=== PATIENT | male | born 1980 | race African-American/Black ===

== ENCOUNTER 2020-01-09 01:18 | Emergency (ER) | payer SELFPAY ==
[~2020-01-09] VITALS: Ht 180.3 cm; Wt 104.3 kg
[2020-01-09 01:39] LABS: BASOPHILS # (AUTO) 0.1 (0.0-0.1); BASOPHILS % 0.5 % (0.0-1.0); EOSINOPHILS # (AUTO) 0.3 (0.0-0.4); EOSINOPHILS % 2.2 % (0.0-6.0); HEMATOCRIT 44.2 % (38.2-49.6); HEMOGLOBIN 14.5 g/dL (14.0-18.0); LYMPHOCYTES # (AUTO) 5.3 (1.0-3.2); LYMPHOCYTES % 44.1 % (18.0-39.1); MEAN CORPUSCULAR HEMOGLOBIN 32.4 pg (28-32); MEAN CORPUSCULAR HGB CONC 32.8 g/dL (31-35); MEAN CORPUSCULAR VOLUME 98.7 fL (81-99); MONOCYTES # (AUTO) 0.8 (0.2-0.8); MONOCYTES % 6.3 % (4.4-11.3); NEUTROPHILS # (AUTO) 5.6 (2.1-6.9); NEUTROPHILS % 46.6 % (38.7-80.0); PLATELET COUNT 253 x10e3/uL (140-360); RED BLOOD COUNT 4.48 x10e6/uL (4.3-5.7); RED CELL DISTRIBUTION WIDTH 12.2 % (11.7-14.4)
[2020-01-09 02:02] LABS: INR 0.99; PROTHROMBIN TIME 13.7 seconds (11.9-14.5)
[2020-01-09 02:06] LABS: ALANINE AMINOTRANSFERASE 60 IU/L (0-55); ALBUMIN 3.7 g/dL (3.5-5.0); ALBUMIN/GLOBULIN RATIO 1.1 (0.8-2.0); ALKALINE PHOSPHATASE 153 IU/L (40-150); ANION GAP 14.6 mmol/L (8-16); BLOOD UREA NITROGEN 10 mg/dL (7-26); BUN/CREATININE RATIO 11 (6-25); CALCIUM 9.6 mg/dL (8.4-10.2); CARBON DIOXIDE 22 mmol/L (22-29); CHLORIDE 108 mmol/L (98-107); CREATININE, SERUM 0.95 mg/dL (0.72-1.25); EST GLOMERULAR FILTRATION RATE > 60 ML/MIN (60-); GLUCOSE 95 mg/dL (74-118); POTASSIUM 4.6 mmol/L (3.5-5.1); SODIUM 140 mmol/L (136-145)
--- NOTE | 2020-01-09 02:45 | Diagnostic Imaging Report ---
EXAMINATION: Head CT without contrast. HISTORY:Left jaw pain. COMPARISON:None. TECHNIQUE: Multidetector axial images were obtained from the foramen magnum to the vertex without contrast. The images were reconstructed using brain and bone algorithms. Thin section brain images were reformatted into coronal and sagittal planes. Dose modulation, iterative reconstruction, and/or weight based adjustment of the mA/kV was utilized to reduce the radiation dose to as low as reasonably achievable. Intravenous contrast: None IMAGE QUALITY: Acceptable. FINDINGS: Skull/scalp: No lytic or blastic. lesions. No surgical changes. Parenchyma: No abnormal density. No acute hemorrhage, mass or acute major vascular territorial infarct. Arteries: No density suggestive of thrombosis. Dural sinuses: No abnormal density suggestive of thrombosis. Ventricles: No hydrocephalus or displacement. Extra-axial spaces: No abnormal density. Brain volume: Normal for age. Craniocervical junction: No mass, Chiari malformation, or basilar invagination. Sella: No mass. Paranasal/mastoid sinuses: Imaged portions unremarkable. IMPRESSION: No intracranial abnormality. Signed by: Dr. Cindi Bishop M.D. on 01/09/2020 2:42 AM
--- NOTE | 2020-01-09 02:49 | Diagnostic Imaging Report ---
History: Neck pain and jaw pain. Comparison studies: None Technique: Axial images were obtained through the cervical region.. Coronal and sagittal images reconstructed from the axial data. Dose modulation, iterative reconstruction, and/or weight based adjustment of the mA/kV was utilized to reduce the radiation dose to as low as reasonably achievable. Intravenous contrast: None Findings: Fractures: None. Soft tissue injuries: None. Atlantoaxial articulation: Intact. Alignment: Loss of normal cervical lordosis is either positional or due to muscle spasm. No scoliosis. No subluxation. Cervicomedullary junction: No abnormalities. The foramen magnum is patent. Soft tissues: No abnormalities. Vertebrae: No fractures, infection or neoplasm. Degenerative changes: None. IMPRESSION: 1. No acute cervical spine fracture or dislocation. Loss of normal cervical lordosis is either positional or due to muscle spasm. 2. Ligament, spinal cord and or vascular abnormalities cannot be excluded on the basis of this examination. Signed by: Dr. Cindi Bishop M.D. on 01/09/2020 2:47 AM
--- NOTE | 2020-01-09 02:57 | Diagnostic Imaging Report ---
History:Left jaw and neck pain. Comparison studies: None Technique: Axial images were obtained through the maxillofacial region. Coronal and sagittal images reconstructed from the axial data. Dose modulation, iterative reconstruction, and/or weight based adjustment of the mA/kV was utilized to reduce the radiation dose to as low as reasonably achievable. Intravenous contrast: None Findings: Soft tissues: No abnormalities. Bones: No acute fracture. Multiple missing teeth, multifocal dental caries and endodontal disease, particularly involving right maxillary first molar associated large periapical lucency, left mandibular first molar with significant regional periosteal disruption, right mandibular second molar also associated with significant periosteal disruption. Right maxillary third molar is partially ruptured into the maxillary sinus floor. Horizontally maloriented left maxillary impacted molars. Orbits: Globes: Intact Extra or intraconal abnormalities: None. Paranasal sinuses: Mild mucosal thickening in the ethmoid sinuses. IMPRESSION: 1. Multiple missing teeth, multifocal dental caries and endodontal disease, the activity of which is to be determined clinically. 2. Impacted and maloriented left maxillary molars. Signed by: Dr. Cindi Bishop M.D. on 01/09/2020 2:55 AM
[2020-01-09] MEDS ORDERED: AUGMENTIN 875-1 EACH PO (03:07)
[2020-01-09 03:11] VITALS: BP 125/86
== END 2020-01-09 03:19 | disposition home or self-care (01) ==
LOC: ER 01:18
DX: K01.1 Impacted teeth (principal); K02.9 Dental caries, unspecified
CPT/HCPCS: 36415; 70450; 70486; 72125; 80053; 83518; 85025; 85610; 85730; 87070; 93005; 99283

== ENCOUNTER 2020-02-25 22:58 | Emergency (ER) | payer SELFPAY ==
[~2020-02-25] VITALS: Ht 180.3 cm; Wt 104.3 kg
[~2020-02-25 22:58] MED LIST: AUGMENTIN 875-1 EACH PO
--- OUTSIDE RECORDS SUMMARY | 2020-02-25 23:01 | XMS REPORT ---
Author [facility] Address Unknown Phone Unavailable Care Team Providers Care Model Builder Name Role Phone LEONEL JONES Unavailable Unavailable Problems This patient has no known problems. Allergies, Adverse Reactions, Alerts This patient has no known allergies or adverse reactions. Medications This patient has no known medications. Results Test Description Test Time Test Comments Text Results Atomic Results Result Comments CT MAXIO FAC/PARANAS WO 2020-01-09 02:47:00 [place] [address] Patient Name: FRANCIE ROBERTS JR MR #: [id number] : 1980 Age/Sex: 39/M Req #: [id number] Adm Physician: Ordered by: LEONEL JONES DO Report #: [id number] Location: ER Room/Bed: Procedure: [id number] CT/CT MAXIO FAC/PARANAS WO Exam Date: 01/09/20 Exam Time: 0200 REPORT STATUS: Signed History:Left jaw and neck pain. Comparison ulices dies: None Technique: Axial images were obtained through the maxillofacial region. Coronal and sagittal images reconstructed from the axial data. Dose modulation, iterative reconstruction, and/or weight based adjustment of the mA/kV was utilized to reduce the radiation dose to as low as reasonably achievable. Intravenous contrast: None Findings: Soft tissues: No abnormalities. Bones: No acute fracture. Multiple missing teeth, multifocal dental caries and endodontal disease, particularly involving right maxillary first molar associated large periapical lucency, left mandibular first molar with significant regional periosteal disruption, right mandibular second molar also associated with significant periosteal disruption. Right maxillary third molar is partially ruptured into the maxillary sinus floor. Horizontally maloriented left maxillary impacted molars. Orbits: Globes: Intact Extra or intraconal abnormalities: None. Paranasal sinuses: Mild mucosal thickening in the ethmoid sinuses. IMPRESSION: 1. Multiple missing teeth, multifocal dental caries and endodontal disease, the activity of which is to be determined clinically. 2. Impacted and maloriented left maxillary molars. Signed by: Dr. Cindi Bishop M.D. on 01/09/2020 2:55 AM Dictated By: CINDI BISHOP MD 4 Transcribed By: JUNE on 01/09/20254 COPY TO: LEONEL JONES DO CT CERVICAL SPINE WO 2020-01-09 02:42:00 [place] [address] Patient Name: FRANCIE ROBERTS JR MR #: [id number] : 1980 Age/Sex: 39/M Req #: [id number] Adm Physician: Ordered by: LEONEL JONES DO Report #: [id number] Location: ER Room/Bed: Procedure: [id number] CT/CT CERVICAL SPINE WO Exam Date: 01/09/20 Exam Time: 0200 REPORT STATUS: Signed History: Neck pain and jaw pain. Comparison studies: None Technique: Axial images were obtained through the cervical region.. Coronal and sagittal images reconstructed from the axial data. Dose modulation, iterative reconstruction, and/or weight based adjustment of the mA/kV was utilized to reduce the radiation dose to as low as reasonably achievable. Intravenous contrast: None Findings: Fractures: None. Soft tissue injuries: None. Atlantoaxial articulation: Intact. Alignment: Loss of normal cervical lordosis is either positional or due to muscle spasm. No scoliosis. No subluxation. Cervicomedullary junction: No abnormalities. The foramen magnum is patent. Soft tissues: No abnormalities. Vertebrae: No fractures, infection or neoplasm. Degenerative changes: None. IMPRESSION: 1. No acute cervical spine fracture or dislocation. Loss of normal cervical lordosis is either positional or due to muscle spasm. 2. Ligament, spinal cord and or vascular abnormalities cannot be excluded on the basis of this examination. Signed by: Dr. Cindi Bishop M.D. on 01/09/2020 2:47 AM Dictated By: CINDI BISHOP MD 6 Transcribed By: JUNE on 01/09/20246 COPY TO: LEONEL JONES DO CT BRAIN WO 2020-01-09 02:40:00 [place] [address] Patient Name: FRANCIE ROBERTS JR MR #: [id number] : 1980 Age/Sex: 39/M Req #: [id number] Adm Physician: Ordered by: LEONEL JONES DO Report #: [id number] Location: ER Room/Bed: Procedure: [id number] CT/CT BRAIN WO Exam Date: 01/09/20 Exam Time: 0200 REPORT STATUS: Signed EXAMINATION: Head CT without contrast. HISTORY:Left jaw pain. COMPARISON:None. TECHNIQUE: Multidetector axial images were obtained from the foramen magnum to the vertex without contrast. The images were reconstructed using brain and bone algorithms. Thin section brain images were reformatted into coronal and sagittal planes. Dose modulation, iterative reconstruction, and/or weight based adjustment of the mA/kV was utilized to reduce the radiation dose to as low as reasonably achievable. Intravenous contrast: None IMAGE QUALITY: Acceptable. FINDINGS: Skull/scalp: No lytic or blastic. lesions. No surgical changes. Parenchyma: No abnormal density. No acute hemorrhage, mass or acute major vascular territorial infarct. Arteries: No density suggestive of thrombosis. Dural sinuses: No abnormal density suggestive of thrombosis. Ventricles: No hydrocephalus or displacement. Extra- axial spaces: No abnormal density. Brain volume: Normal for age. Craniocervical junction: No mass, Chiari malformation, or basilar invagination. Sella: No mass. Paranasal/mastoid sinuses: Imaged portions unremarkable. IMPRESSION: No intracranial abnormality. Signed by: Dr. Cindi Bishop M.D. on 01/09/2020 2:42 AM Dictated By: CINDI BISHOP MD 1 Transcribed By: JUNE on 01/09/20241 COPY TO: LEONEL JONES DO
[2020-02-25] MEDS ORDERED: KETOROLAC TROMETHAMINE 30 MG/ML VIAL IM ONE (23:15)
[2020-02-25] MEDS ORDERED: CYCLOBENZAPRINE HCL 10 MG TAB PO ONE (23:15)
[2020-02-25] MEDS ORDERED: PREDNISONE20 MG PO (23:23)
[2020-02-25] MEDS ORDERED: NAPROSYN500 MG PO (23:23)
[2020-02-25] MEDS ORDERED: CYCLOBENZAPRINE HCL 10 MG TAB ONE (23:31)
[2020-02-25] MEDS ORDERED: KETOROLAC TROMETHAMINE 60 MG/2 ML VIAL ONE (23:31)
== END 2020-02-25 23:38 | disposition home or self-care (01) ==
LOC: FSED 22:58
DX: M54.41 Lumbago with sciatica, right side (principal); S29.012A Strain of muscle and tendon of back wall of thorax, initial encounter; M25.551 Pain in right hip; M79.651 Pain in right thigh; M25.561 Pain in right knee; M79.661 Pain in right lower leg
CPT/HCPCS: 99283; J1885